=== PATIENT | male | born 1990 | race Caucasian/White ===

== ENCOUNTER 2021-12-16 15:44 | Emergency (ER) | payer BC, SELFPAY ==
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
[2021-12-16 16:01] VITALS: BP 167/103; PULSE 72; RESP 12; TEMP 36.6; O2SAT 98
[2021-12-16] MEDS: TETANUS,DIPHTHERIA,AC PERTUSSIS ADULT (0.5 ML) BOOSTRIX IM (16:22)
[2021-12-16] MEDS: ONDANSETRON INJ 4 MG/2 ML VIAL IV PUSH (16:23)
[2021-12-16] MEDS: MORPHINE SULFATE (*CRX) 4 MG/ML INJ IV PUSH (16:23)
[2021-12-16] MEDS: ceFAZolin SODIUM 1 GM VIAL IV PUSH (16:35)
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
--- NOTE | 2021-12-16 18:52 | PC.NURSE ---
EMTALA form completed and faxed to [facility]. NISHA Couch called report to NISHA Bee at [facility].
--- NOTE | 2021-12-16 18:53 | PC.NURSE ---
Report called at 1850 to JORGE, Report given to Rohit.
== END 2021-12-16 18:50 | disposition short-term general hospital (02) ==
PROVIDERS: Emergency Provider Emergency Medicine
DX: S52.591B Other fractures of lower end of right radius, initial encounter for open fracture type I or II (principal); S52.691B Other fracture of lower end of right ulna, initial encounter for open fracture type I or II; Z23 Encounter for immunization; V86.55XA Driver of 3- or 4- wheeled all-terrain vehicle (ATV) injured in nontraffic accident, initial encounter
CPT/HCPCS: 12001; 29125; 73090; 90471; 90715; 96374; 96375; 99285; J0690; J2270; J2405

== ENCOUNTER 2025-05-28 20:21 | Emergency (ER) | payer SELFPAY ==
[2025-05-28] VITALS (16 sets, daily range): BP systolic 137–160; BP diastolic 86–118; PULSE 65–90; RESP 11–28; TEMP 36.3; O2SAT 94–99
--- NOTE | ~2025-05-28 | CT_ITS ---
EXAMINATION: CT abdomen pelvis wo con DATE: 05/28/2025 20:40 INDICATION: Left flank pain. History of kidney stones. TECHNIQUE: Computed tomography (CT) of the abdomen and pelvis was performed without intravenous contrast. The dose-length product was 204.04 mGy-cm. Automated exposure control and iterative reconstruction technique were employed. COMPARISON: None. FINDINGS: Lung bases unremarkable. Heart size normal. No significant pleural or pericardial effusion. There is a 5 mm proximal left ureteral stone with minimal hydronephrosis. There is nonobstructing 5 mm left renal stone. No right renal stones. The liver, spleen, pancreas, right kidney and adrenal glands are unremarkable. Gallbladder is contracted. Nonobstructive bowel pattern. Normal appendix. No significant vascular abnormality. No lymphadenopathy. No evidence for diverticulitis. No free air or free fluid. No acute osseous abnormality. IMPRESSION: 1. Proximal left ureteral stone measuring 5 mm with mild hydronephrosis. 2: Left nephrolithiasis. Reviewed, dictated and finalized at location O.
--- NOTE | 2025-05-28 20:27 | ED_ITS ---
HPI - General Adult General Chief complaint: Back Pain/Injury Stated complaint: L flank pain Time Seen by Provider: 05/28/25 20:23 History of Present Illness HPI narrative: 35-year-old male presents with left flank pain that radiates left lower quadrant abdomen for the past 8 hours. Patient denies any fevers, nausea vomiting, or urinary symptoms. Patient has a history of kidney stones in the past. Patient has not taken anything for pain Onset (ago): hour(s) (Eight) Related Data Allergies Allergy/AdvReac Type Severity Reaction Status Date / Time No Known Allergies Allergy Verified 12/16/21 16:18 Review of Systems 2 Review of Systems: A 10 system review of systems was completed on the patient and is negative except for what is stated in the HPI. Nursing and ancillary documentation was reviewed. [facility] Past Medical History Medical History (Updated 05/28/25 @ 23:01 by Kvng Lundberg APRN) No active medical problems Social History Social History (Updated 12/16/21 @ 16:53 by Elham Easton PA-C) Smoking status: Never smoker Exam 2 Narrative: GENERAL: Well-appearing, well-nourished, and in no acute distress. HEAD: Normocephalic, atraumatic. EYES: PERRLA and EOMI. ENT: Nares clear, no rhinorrhea or epistaxis. Mucous membranes moist. NECK: Supple. CHEST: Clear to auscultation. No respiratory distress. HEART: Regular rate and rhythm. No murmur heard. Normal peripheral pulses. ABDOMEN: Soft, nontender, nondistended, normal active bowel sounds. left cva tenderness and LLQ abdominal pain EXTREMITIES: Normal range of motion. No edema. SKIN: Warm, dry, no rash. NEURO: No focal deficits. Alert and oriented x3. PSYCH: Normal mood and affect. Course Course Emergency Course: Order labs of TT to rule out kidney stone Reevaluation(s) Reevaluation #1: Patient is pain-free at this time Date: 05/28/25 Time: 22:59 Vital Signs Vital signs: Vital Signs Temperature 36.3 C L 05/28/25 20:25 Pulse Rate 81 05/28/25 20:25 Respiratory Rate 16 05/28/25 20:25 Blood Pressure 160/118 H 05/28/25 20:25 Pulse Oximetry 97 05/28/25 20:25 Oxygen Delivery Room Air 05/28/25 20:25 Temperature 36.3 C L 05/28/25 20:25 Pulse Rate 81 05/28/25 20:25 Respiratory Rate 16 05/28/25 20:25 Blood Pressure 160/118 H 05/28/25 20:25 Pulse Oximetry 97 05/28/25 20:25 Oxygen Delivery Room Air 05/28/25 20:25 Medical Decision Making MDM Narrative Medical decision making narrative: Patient workup shows the patient has left kidney stone 5mm of his nonobstructing. Patient has no white count and urine shows mild leuks. Kidney functions within normal limits. Will start patient on Flomax, Cipro, Toradol. Will refer patient to urology Differential Diagnosis Differential Diagnosis: Kidney stone versus UTI versus diverticulitis Vital Signs Vital Signs: Vital Signs Temperature 36.3 C L 05/28/25 20:25 Pulse Rate 81 05/28/25 20:25 Respiratory Rate 16 05/28/25 20:25 Blood Pressure 160/118 H 05/28/25 20:25 Pulse Oximetry 97 05/28/25 20:25 Oxygen Delivery Room Air 05/28/25 20:25 Temperature 36.3 C L 05/28/25 20:25 Pulse Rate 81 05/28/25 20:25 Respiratory Rate 16 05/28/25 20:25 Blood Pressure 160/118 H 05/28/25 20:25 Pulse Oximetry 97 05/28/25 20:25 Oxygen Delivery Room Air 05/28/25 20:25 Lab Data 05/28/25 20:31 05/28/25 20:31 Labs: Lab Results 05/28/25 05/28/25 Range/Units 20:31 21:16 WBC 9.3 (4.5-10.0) K/mm3 RBC 5.37 (4.6-6.20) M/mm3 Hgb 15.8 (14.0-18.0) g/dL Hct 45.1 (42.0-52.0) % MCV 84.0 (80-100) fl MCH 29.4 (26-34) pg MCHC 35.0 (32-36) g/dl RDW 11.6 (11.5-14.5) % Plt Count 340 (150-375) k/mm3 MPV 9.2 (7.4-10.4) fl Immature Gran % (Auto) 0.2 (0-0.5) % Neut % (Auto) 56.4 (45.5-73.1) % Lymph % (Auto) 31.5 (18.3-44.2) % [place]ton % (Auto) 8.0 (2.6-8.5) % Eos % (Auto) 2.8 (0-4.4) % Baso % (Auto) 1.1 (0.2-1.2) % Lymph # (Auto) 2.91 (0.9-3.2) K/mm3 Overton # (Auto) 0.7 H (0.1-0.6) K/mm3 Eos # (Auto) 0.3 (0-0.3) K/mm3 Baso # (Auto) 0.1 (0.0-0.1) K/mm3 Abs Immat Gran (auto) 0.02 (0.00-0.031) K/mm3 Absolute Neuts (auto) 5.2 (1.3-6.7) K/mm3 Absolute Nucleated RBC 0.000 (0.0-0.012) K/mm3 Nucleated RBC % 0.0 (0.0-0.2) % Sodium 141 (137-145) mmol/L Potassium 3.9 (3.4-5.0) mmol/L Chloride 106 (98-107) mmol/L Carbon Dioxide 23 (22-30) mmol/L Anion Gap 12 (4-12) mmol/L BUN 13 (9-20) mg/dL Creatinine 1.01 (0.7-1.3) mg/dL Estim Creat Clear Calc 89 ml/min Estimated GFR > 60 (59 - ) Glucose 98 (65-110) mg/dL Calcium 9.5 (8.4-10.2) mg/dL Total Bilirubin 0.4 (0.2-1.3) mg/dL AST 25 (17-59) U/L ALT 33 (6-50) U/L Alkaline Phosphatase 68 (38-126) U/L Total Protein 7.8 (6.3-8.2) g/dL Albumin 4.7 (3.5-5.1) g/dL Urine Color Yellow (Yellow) Urine Appearance Cloudy H (Clear) Urine pH 5.5 (5.0-9.0) Ur Specific [place] 1.019 (1.001-1.035) Urine Protein 1+ H (Negative) mg/dL Urine Glucose (UA) Negative (Negative) mg/dL Urine Ketones Trace H (Negative) mg/dL Ur Blood (Man) 3+ H (Negative) Urine Nitrate Negative (Negative) Urine Bilirubin Negative (Negative) Urine Urobilinogen 0.2 (<2.0) mg/dL Leukocyte Esterase Rfl Trace H (Negative) JOSIAH/UL Urine RBC >100 H (0-2) /hpf Urine WBC 0-5 (0-3) /hpf Ur Squamous Epith Cells None seen (Few) /hpf Urine Bacteria None seen /hpf Urine Casts 0-2 Imaging Data Radiologist's impression: Nonobstructing 5 mm left lower pole renal stone No acute diverticulitis no bowel obstruction no free Discharge Plan Discharge Clinical Impression: Calculus of left kidney Patient Disposition: Home Condition: Improved Instructions: Antibiotic Form, Kidney Stones (ED) Additional Instructions: Take medication as prescribed Return for worsening pain, fever, nausea vomiting Patient Language: Bulgarian Prescriptions: New ketorolac 10 mg tablet 10 mg PO Q6H Qty: 14 5RF Rx Instructions: maximum total duration of 5 days from all oral, intranasal, or parenteral formulations ciprofloxacin HCl [Cipro] 500 mg tablet 500 mg PO Q12H Qty: 14 0RF tamsulosin [Flomax] 0.4 mg capsule 0.4 mg PO DAILY Qty: 5 0RF Follow-up/Referrals: Jamil Burnett MD [Physician, Urology] - 2 Days PHYSICIAN,DIGITAL MEDIA DIRECTOR [Primary Care Provider, Internal Medicine] Stand Alone Forms: Work/School Release IP Time of Disposition: 23:05
[2025-05-28 20:38] LABS: Hematocrit 45.1 % (42.0-52.0); Hemoglobin 15.8 g/dL (14.0-18.0); Immature Granulocyte Percent A 0.2 % (0-0.5); Lymphocytes Absolute Auto 2.91 K/mm3 (0.9-3.2); Mean Corpuscular HGB Conc 35.0 g/dl (32-36); Mean Corpuscular Hemoglobin 29.4 pg (26-34); Mean Corpuscular Volume 84.0 fl (80-100); Nucleated Red Blood Cells Absolute Auto 0.000 K/mm3 (0.0-0.012); Nucleated Red Blood Cells Perc 0.0 % (0.0-0.2); Platelet Count Result 340 k/mm3 (150-375); Red Blood Count 5.37 M/mm3 (4.6-6.20); White Blood Count 9.3 K/mm3 (4.5-10.0)
[2025-05-28] MEDS: KETOROLAC 30 MG/ML VIAL (*BKC) IV PUSH (20:43)
[2025-05-28 20:55] LABS: Alanine Aminotransferase 33 U/L (6-50); Albumin Level 4.7 g/dL (3.5-5.1); Alkaline Phosphatase 68 U/L (38-126); Anion Gap 12 mmol/L (4-12); Aspartate Amino Transferase 25 U/L (17-59); Bilirubin,Total 0.4 mg/dL (0.2-1.3); Blood Urea Nitrogen 13 mg/dL (9-20); Calcium 9.5 mg/dL (8.4-10.2); Carbon Dioxide 23 mmol/L (22-30); Chloride 106 mmol/L (98-107); Estimated CRCL calculation 89 ml/min; Estimated Glomerular Filt Rate > 60; Glucose 98 mg/dL (65-110); Potassium 3.9 mmol/L (3.4-5.0); Sodium 141 mmol/L (137-145); Total Protein 7.8 g/dL (6.3-8.2)
[2025-05-28 21:27] LABS: Add Urine Microscopic? YES; Appearance Urine Cloudy (Clear); Glucose Urine UA Negative (Negative); Leukocyte Esterase Ur Trace LEU/UL (Negative); Nitrate Urine Negative (Negative); Non Pathogenic Casts 0-2; Specific Grav Ur 1.019 (1.001-1.035)
[2025-05-28] MEDS: CIPROFLOXACIN 500 MG TAB PO (23:10)
[2025-05-28] MEDS: TAMSULOSIN HCL 0.4 MG CAPSULE PO (23:10)
== END 2025-05-28 23:16 | disposition home or self-care (01) ==
PROVIDERS: Emergency Provider Nurse Practitioner Family
DX: N13.2 Hydronephrosis with renal and ureteral calculous obstruction (principal)
CPT/HCPCS: 36415; 74176; 80053; 81001; 85025; 96374; 99284; A9270; J1885